=== PATIENT | male | born 1965 | race Caucasian/White ===

== ENCOUNTER 2019-01-18 14:32 | Emergency (ER) | payer MEDICAID ==
[~2019-01-18] VITALS: Ht 185.4 cm; Wt 99.9 kg
[2019-01-18 15:48] LABS: BASOPHILS % (AUTO) 1 % (0-1); EOSINOPHILS # (AUTO) 0.22 x10^3/uL (0-0.4); EOSINOPHILS % (AUTO) 2 % (1-7); LYMPHOCYTES % (AUTO) 31 % (22-44); MD NO; MEAN CORPUSCULAR HEMOGLOBIN 29.8 pg (27.5-34.5); MEAN CORPUSCULAR HGB CONC 33.4 g/dL (33.2-36.2); MEAN CORPUSCULAR VOLUME 89.1 fL (81-97); MONOCYTES # (AUTO) 1.03 x10^3/uL (0.2-0.8); MONOCYTES % (AUTO) 8 % (2-9); NEUTROPHILS # (AUTO) 7.74 x10^3/uL (1.8-6.8); NEUTROPHILS % (AUTO) 59 % (42-75); PLATELET COUNT 326 x10^3/uL (130-400); RED BLOOD COUNT 5.16 x10^6/uL (4.38-5.82); RED CELL DISTRIBUTION WIDTH 15.9 % (9.4-14.8)
[2019-01-18 15:53] LABS: ALANINE AMINOTRANSFERASE 25 U/L (12-78); ALBUMIN 4.3 g/dL (3.4-5.0); ANION GAP 9 mmol/L (5-15); CALCIUM 9.1 mg/dL (8.5-10.1); CHLORIDE 107 mmol/L (98-107)
[2019-01-18 15:56] LABS: ALKALINE PHOSPHATASE 116 U/L (45-117); BILIRUBIN,TOTAL 0.2 mg/dL (0.2-1.0); CREATININE 1.12 mg/dL (0.7-1.3); TOTAL PROTEIN 8.6 g/dL (6.4-8.2)
[2019-01-18] MEDS ORDERED: LIDOCAINE 2%,20 ML JEL.PF.APP MM ONE (16:12)
--- NOTE | 2019-01-18 16:16 | NUR ---
Pt reports hx of bladder cancer, self caths, has not been able to successfully cath himself since 0130am. Increasing abd pain, 05/19
--- NOTE | 2019-01-18 16:18 | NUR ---
RN x2 at bedside for cath insertion.
[2019-01-18 16:19] VITALS: BP 110/65
--- NOTE | 2019-01-18 16:29 | NUR ---
Acevedo placed and still draining, approx 1100cc output already, pt reports decreased pain
[2019-01-18 16:39] LABS: MICROSCOPIC AUTO
[2019-01-18 16:51] LABS: CULTURE INDICATED? YES
[2019-01-18] MEDS ORDERED: NITROFURANTOIN (MACROBID) 100 MG CAPSULE PO ONE (17:00)
[2019-01-18] MEDS ORDERED: NITROFURANTOIN (MACROBID) 100 MG CAPSULE ONE (17:26)
--- NOTE | 2019-01-18 18:01 | NUR ---
Pt given extra bag for night and leg bag placed on pt prior to dc, verbalized understanding of dc instructions and importance of returning to ed for any worsening/concerning s/s
== END 2019-01-18 18:03 | disposition home or self-care (01) ==
LOC: EDSEX 14:32 → ED 17:57
DX: N30.00 Acute cystitis without hematuria (principal); F17.200 Nicotine dependence, unspecified, uncomplicated; C67.9 Malignant neoplasm of bladder, unspecified
CPT/HCPCS: 36415; 51702; 80053; 81001; 85025; 87077; 87086; 87186; 99284

== ENCOUNTER 2019-01-20 06:57 | Emergency (ER) | payer MEDICAID ==
[~2019-01-20] VITALS: Ht 185.4 cm; Wt 98.9 kg
[2019-01-20 06:59] VITALS: BP 126/80
--- NOTE | 2019-01-20 07:08 | NUR ---
LEG CATH BAG WITH STRAPS GIVEN TO PT
--- NOTE | 2019-01-20 07:13 | NUR ---
Patient given discharge instructions and they have confirmed that they understand the instructions. Patient ambulatory with steady gait.
== END 2019-01-20 07:14 | disposition home or self-care (01) ==
LOC: ED 07:08
DX: Z46.6 Encounter for fitting and adjustment of urinary device (principal); Z85.51 Personal history of malignant neoplasm of bladder
CPT/HCPCS: 99284

== ENCOUNTER 2019-01-23 05:50 | Emergency (ER) | payer MEDICAID ==
[~2019-01-23] VITALS: Ht 185.4 cm; Wt 101.5 kg
--- NOTE | 2019-01-23 06:13 | NUR ---
FIRST CONTACT WITH PT. PT HAS HAMLIN PLACED LAST WEEK, NOTES DECREASED OUTPUT SINCE LAST NIGHT. PT DENIES ANY DRAINAGE/SWELLING/PAIN AROUND CATHETER SITE. PT C/O BILATERAL LOWER ABD PAIN D/T DECREASED OUTPUT. PT'S AOX4. RESPS EVEN AND UNLABORED. BP/SPO2 MONITORS IN PLACE. CALL LIGHT WITHIN REACH.
--- NOTE | 2019-01-23 06:42 | NUR ---
HAND IRRIGATE IS DONE. PT URINATING NOW.
--- NOTE | 2019-01-23 06:49 | NUR ---
REPORT GIVEN TO ZULMA SUMMERS.
--- NOTE | 2019-01-23 06:49 | NUR ---
REPORT FROM WIL SUMMERS, ASSUME CARE OF PT AT THS TIME.
[2019-01-23 06:58] VITALS: BP 121/78
--- NOTE | 2019-01-23 06:58 | NUR ---
PT DISCHARGED HOME WITH IRRIGATION SUPPLIES PER ERP.
== END 2019-01-23 07:00 | disposition home or self-care (01) ==
LOC: ED 06:44
DX: N40.1 Benign prostatic hyperplasia with lower urinary tract symptoms (principal); R33.8 Other retention of urine; C67.9 Malignant neoplasm of bladder, unspecified
CPT/HCPCS: 51700; 99284

== ENCOUNTER 2019-02-13 21:15 | Inpatient (IN) | payer MEDICAID ==
[~2019-02-13] VITALS: Ht 185.4 cm; Wt 101.0 kg
--- NOTE | 2019-02-13 21:45 | NUR ---
PT. TO ED WITH C/O RIGHT SIDE PAIN/RIGHT FLANK PAIN STARTING TODAY. PT. REPORTS PAIN COMES IN WAVES. PT. APPERS VERY UNCOMFORTABLE. PANCHITO LYON IN TO EVAL AND DISCUSS POC. IV PLACED. BLOOD DRAWN.
[2019-02-13] MEDS ORDERED: HYDROmorphone 2 MG/ML, 1ML ONE (21:51)
[2019-02-13] MEDS ORDERED: KETOROLAC 30 MG/1 ML ONE (21:51)
[2019-02-13] MEDS ORDERED: ONDANSETRON 2MG/ML, 2ML ONE (21:51)
[2019-02-13] MEDS: HYDROmorphone 2 MG/ML, 1ML IVPush PRN (21:54)
[2019-02-13 21:57] LABS: BASOPHILS # (AUTO) 0.05 x10^3/uL (0-0.1); BASOPHILS % (AUTO) 0 % (0-1); EOSINOPHILS # (AUTO) 0.37 x10^3/uL (0-0.4); EOSINOPHILS % (AUTO) 3 % (1-7); LYMPHOCYTES # (AUTO) 3.21 x10^3/uL (1-3.4); LYMPHOCYTES % (AUTO) 23 % (22-44); MD NO; MEAN CORPUSCULAR HEMOGLOBIN 30.3 pg (27.5-34.5); MEAN CORPUSCULAR HGB CONC 33.3 g/dL (33.2-36.2); MONOCYTES # (AUTO) 1.09 x10^3/uL (0.2-0.8); MONOCYTES % (AUTO) 8 % (2-9); NEUTROPHILS # (AUTO) 9.52 x10^3/uL (1.8-6.8); NEUTROPHILS % (AUTO) 67 % (42-75); PLATELET COUNT 276 x10^3/uL (130-400); RED BLOOD COUNT 5.03 x10^6/uL (4.38-5.82); RED CELL DISTRIBUTION WIDTH 15.1 % (9.4-14.8)
[2019-02-13] MEDS ORDERED: KETOROLAC 30 MG/1 ML IVPush ONE (22:00)
[2019-02-13] MEDS ORDERED: ONDANSETRON 2MG/ML, 2ML IVPush ONE (22:00)
[2019-02-13] MEDS ORDERED: SODIUM CHLORIDE FLUSH 10ML SYR IVF ONE (22:00)
[2019-02-13] MEDS ORDERED: METO25TA91 PO (22:03)
[2019-02-13] MEDS ORDERED: ASPI-496 PO (22:03)
[2019-02-13] MEDS ORDERED: LOSA25TA25 PO (22:03)
[2019-02-13] MEDS ORDERED: FLEC50TA25 PO (22:03)
[2019-02-13 22:05] LABS: ALANINE AMINOTRANSFERASE 29 U/L (12-78); ALBUMIN 3.9 g/dL (3.4-5.0); ANION GAP 6 mmol/L (5-15); CHLORIDE 106 mmol/L (98-107); CREATININE 1.11 mg/dL (0.7-1.3)
[2019-02-13 22:08] LABS: ALKALINE PHOSPHATASE 134 U/L (45-117); BILIRUBIN,TOTAL 0.3 mg/dL (0.2-1.0); TOTAL PROTEIN 8.1 g/dL (6.4-8.2)
--- NOTE | 2019-02-13 22:15 | NUR ---
PT. WAS ABLE TO AMBULATE TO BR TO PROVIDE STRAIGHT CATH(PT. STRAIGHT CATH'S SELF.) PT. DID USE CLEAN TECHNIQUE AND CLEANED PENIS PRIOR. URINE SENT TO LAB.
--- NOTE | 2019-02-13 22:41 | NUR ---
PT. REPORTS PAIN RELIEF AT THIS TIME DOWN TO 09/19. URINE PENDING. PT. DENEIS NEEDS.
[2019-02-13 22:54] LABS: CULTURE INDICATED? YES; MICROSCOPIC INDICATED
--- NOTE | 2019-02-13 23:27 | NUR ---
CHART UP FOR RECHECK AT THIS TIME.
--- NOTE | 2019-02-13 23:43 | NUR ---
PT. TO CT VIA [facility] AT THIS TIME.
[2019-02-14] MEDS ORDERED: CEFTRIAXONE PMX 1GM/50ML 50 ML IV ONE (00:30)
[2019-02-14] MEDS ORDERED: CEFTRIAXONE PMX 1GM/50ML 50 ML ONE (01:02)
--- NOTE | 2019-02-14 01:04 | NUR ---
PER PANCHITO LYON NO BLOOD CULTURES NEEDED PRIOR TO IV ABX. PT. AMBULATORY DOWN CONTE TO AT THIS TIME.
[2019-02-14] MEDS: HYDROmorphone 2 MG/ML, 1ML IVPush PRN (01:06)
--- NOTE | 2019-02-14 01:18 | NUR ---
REPORT TO MELINA SILVEIRA. FLOOR READY FOR PT. TRANSPORT.
[2019-02-14 01:34] VITALS: BP 107/67
[2019-02-14 07:09] VITALS: BP 116/72
[2019-02-14] MEDS: METOPROLOL SUCCINATE 25 MG TAB.ER.24H PO SCH (08:11)
[2019-02-14] MEDS: ASPIRIN 81 MG TABLET EC PO SCH (08:11)
[2019-02-14] MEDS: FLECAINIDE 50MG TABLET PO SCH ×2 (08:11→20:02)
[2019-02-14 10:05] LABS: BASOPHILS # (AUTO) 0.07 x10^3/uL (0-0.1); BASOPHILS % (AUTO) 1 % (0-1); EOSINOPHILS # (AUTO) 0.18 x10^3/uL (0-0.4); EOSINOPHILS % (AUTO) 2 % (1-7); LYMPHOCYTES # (AUTO) 2.31 x10^3/uL (1-3.4); LYMPHOCYTES % (AUTO) 28 % (22-44); MD NO; MEAN CORPUSCULAR HEMOGLOBIN 29.5 pg (27.5-34.5); MEAN CORPUSCULAR VOLUME 89.2 fL (81-97); MEAN PLATELET VOLUME 6.7 fL (7.4-10.4); MONOCYTES # (AUTO) 0.86 x10^3/uL (0.2-0.8); MONOCYTES % (AUTO) 10 % (2-9); NEUTROPHILS % (AUTO) 59 % (42-75); PLATELET COUNT 257 x10^3/uL (130-400); RED BLOOD COUNT 4.95 x10^6/uL (4.38-5.82); RED CELL DISTRIBUTION WIDTH 15.3 % (9.4-14.8)
[2019-02-14 10:07] LABS: ALBUMIN 3.9 g/dL (3.4-5.0); ANION GAP 6 mmol/L (5-15); CALCIUM 8.9 mg/dL (8.5-10.1); CHLORIDE 111 mmol/L (98-107)
[2019-02-14 10:10] LABS: ALANINE AMINOTRANSFERASE 24 U/L (12-78); ALKALINE PHOSPHATASE 116 U/L (45-117); BILIRUBIN,TOTAL 0.8 mg/dL (0.2-1.0); CREATININE 0.98 mg/dL (0.7-1.3); TOTAL PROTEIN 7.7 g/dL (6.4-8.2)
[2019-02-14] MEDS: NICOTINE 14MG/24 HR PATCH.TD24 TD SCH (10:28)
[2019-02-14] MEDS: D5%-0.45% NACL 1,000 ML IV SCH ×2 (10:28→20:03)
[2019-02-14] MEDS: HYDROmorphone 2 MG/ML, 1ML IV PRN ×3 (10:47→20:02)
[2019-02-14] MEDS: ONDANSETRON 2MG/ML, 2ML IVPush PRN ×2 (10:47→15:30)
[2019-02-14] MEDS ORDERED: FUROSEMIDE 20 MG/2 ML ONE (13:21)
[2019-02-14 14:25] VITALS: BP 137/87
[2019-02-14 19:05] VITALS: BP 143/88
[2019-02-15] MEDS: CEFTRIAXONE PMX 1GM/50ML 50 ML IV SCH (00:13)
[2019-02-15] MEDS: HYDROmorphone 2 MG/ML, 1ML IV PRN ×5 (00:13→22:23)
[2019-02-15 02:38] VITALS: BP 125/85
[2019-02-15 04:35] LABS: BASOPHILS # (AUTO) 0.05 x10^3/uL (0-0.1); BASOPHILS % (AUTO) 1 % (0-1); EOSINOPHILS # (AUTO) 0.24 x10^3/uL (0-0.4); EOSINOPHILS % (AUTO) 3 % (1-7); LYMPHOCYTES # (AUTO) 2.18 x10^3/uL (1-3.4); LYMPHOCYTES % (AUTO) 31 % (22-44); MD NO; MEAN CORPUSCULAR HEMOGLOBIN 29.6 pg (27.5-34.5); MEAN CORPUSCULAR HGB CONC 32.9 g/dL (33.2-36.2); MEAN CORPUSCULAR VOLUME 89.9 fL (81-97); MEAN PLATELET VOLUME 6.9 fL (7.4-10.4); MONOCYTES # (AUTO) 0.65 x10^3/uL (0.2-0.8); MONOCYTES % (AUTO) 9 % (2-9); NEUTROPHILS # (AUTO) 3.89 x10^3/uL (1.8-6.8); NEUTROPHILS % (AUTO) 56 % (42-75); PLATELET COUNT 268 x10^3/uL (130-400); RED BLOOD COUNT 4.99 x10^6/uL (4.38-5.82); RED CELL DISTRIBUTION WIDTH 14.9 % (9.4-14.8)
[2019-02-15 04:44] LABS: ALBUMIN 3.8 g/dL (3.4-5.0); ANION GAP 5 mmol/L (5-15); CHLORIDE 108 mmol/L (98-107)
[2019-02-15 04:49] LABS: ALANINE AMINOTRANSFERASE 23 U/L (12-78); ALKALINE PHOSPHATASE 110 U/L (45-117); BILIRUBIN,TOTAL 0.4 mg/dL (0.2-1.0); CREATININE 1.18 mg/dL (0.7-1.3); TOTAL PROTEIN 7.6 g/dL (6.4-8.2)
[2019-02-15] MEDS: D5%-0.45% NACL 1,000 ML IV SCH ×3 (06:40→22:23)
[2019-02-15 07:54] VITALS: BP 122/81
[2019-02-15] MEDS: METOPROLOL SUCCINATE 25 MG TAB.ER.24H PO SCH (08:23)
[2019-02-15] MEDS: NICOTINE 14MG/24 HR PATCH.TD24 TD SCH (08:23)
[2019-02-15] MEDS: FLECAINIDE 50MG TABLET PO SCH ×2 (08:23→21:00)
[2019-02-15] MEDS: ASPIRIN 81 MG TABLET EC PO SCH (08:23)
[2019-02-15 14:03] VITALS: BP 109/71
[2019-02-15 20:54] VITALS: BP 126/77
[2019-02-16] MEDS: CEFTRIAXONE PMX 1GM/50ML 50 ML IV SCH (00:23)
[2019-02-16 01:20] VITALS: BP 127/82
[2019-02-16] MEDS: HYDROmorphone 2 MG/ML, 1ML IV PRN ×7 (01:33→23:13)
[2019-02-16] MEDS: KETOROLAC 30 MG/1 ML IV PRN ×4 (03:57→23:13)
[2019-02-16] MEDS: LIDODERM 5% PATCH TD SCH (03:57)
[2019-02-16] MEDS ORDERED: KETOROLAC 30 MG/1 ML IM PRN (04:00)
[2019-02-16 05:22] LABS: BASOPHILS # (AUTO) 0.06 x10^3/uL (0-0.1); BASOPHILS % (AUTO) 1 % (0-1); EOSINOPHILS # (AUTO) 0.15 x10^3/uL (0-0.4); EOSINOPHILS % (AUTO) 1 % (1-7); LYMPHOCYTES # (AUTO) 2.08 x10^3/uL (1-3.4); LYMPHOCYTES % (AUTO) 17 % (22-44); MD NO; MEAN CORPUSCULAR HEMOGLOBIN 29.6 pg (27.5-34.5); MEAN CORPUSCULAR HGB CONC 32.7 g/dL (33.2-36.2); MEAN CORPUSCULAR VOLUME 90.4 fL (81-97); MONOCYTES # (AUTO) 0.79 x10^3/uL (0.2-0.8); MONOCYTES % (AUTO) 6 % (2-9); NEUTROPHILS # (AUTO) 9.21 x10^3/uL (1.8-6.8); NEUTROPHILS % (AUTO) 75 % (42-75); PLATELET COUNT 276 x10^3/uL (130-400); RED BLOOD COUNT 4.73 x10^6/uL (4.38-5.82)
[2019-02-16 05:31] LABS: ALBUMIN 3.7 g/dL (3.4-5.0); ANION GAP 8 mmol/L (5-15); CALCIUM 8.6 mg/dL (8.5-10.1); CHLORIDE 112 mmol/L (98-107)
[2019-02-16 05:35] LABS: ALANINE AMINOTRANSFERASE 28 U/L (12-78); ALKALINE PHOSPHATASE 107 U/L (45-117); BILIRUBIN,TOTAL 0.4 mg/dL (0.2-1.0); CREATININE 0.99 mg/dL (0.7-1.3); TOTAL PROTEIN 7.3 g/dL (6.4-8.2)
[2019-02-16] MEDS ORDERED: LACTATED RINGERS 1,000 ML IV SCH (07:30)
[2019-02-16 08:00] VITALS: BP 124/76
[2019-02-16] MEDS: FLECAINIDE 50MG TABLET PO SCH ×2 (08:05→22:27)
[2019-02-16] MEDS: NICOTINE 14MG/24 HR PATCH.TD24 TD SCH (08:05)
[2019-02-16] MEDS: ASPIRIN 81 MG TABLET EC PO SCH (08:05)
[2019-02-16] MEDS: METOPROLOL SUCCINATE 25 MG TAB.ER.24H PO SCH (08:05)
[2019-02-16 14:00] VITALS: BP 130/81
[2019-02-16 19:23] VITALS: BP 144/83
[2019-02-17] MEDS: CEFTRIAXONE PMX 1GM/50ML 50 ML IV SCH (00:36)
[2019-02-17 03:15] VITALS: BP 116/68
[2019-02-17] MEDS: LIDODERM 5% PATCH TD SCH (06:00)
[2019-02-17] MEDS: ASPIRIN 81 MG TABLET EC PO SCH (08:08)
[2019-02-17] MEDS: HYDROmorphone 2 MG/ML, 1ML IV PRN (08:09)
[2019-02-17] MEDS: METOPROLOL SUCCINATE 25 MG TAB.ER.24H PO SCH (08:09)
[2019-02-17] MEDS: FLECAINIDE 50MG TABLET PO SCH (08:09)
[2019-02-17] MEDS: NICOTINE 14MG/24 HR PATCH.TD24 TD SCH (08:09)
[2019-02-17] MEDS ORDERED: CEFTRIAXONE PMX 1GM/50ML 50 ML IV SCH (09:00)
[2019-02-17 09:55] VITALS: BP 136/94
[2019-02-17 11:55] LABS: BASOPHILS # (AUTO) 0.04 x10^3/uL (0-0.1); BASOPHILS % (AUTO) 1 % (0-1); EOSINOPHILS # (AUTO) 0.15 x10^3/uL (0-0.4); EOSINOPHILS % (AUTO) 2 % (1-7); LYMPHOCYTES # (AUTO) 2.41 x10^3/uL (1-3.4); LYMPHOCYTES % (AUTO) 32 % (22-44); MD NO; MEAN PLATELET VOLUME 6.7 fL (7.4-10.4); MONOCYTES % (AUTO) 8 % (2-9); NEUTROPHILS # (AUTO) 4.45 x10^3/uL (1.8-6.8); NEUTROPHILS % (AUTO) 58 % (42-75); PLATELET COUNT 319 x10^3/uL (130-400); RED CELL DISTRIBUTION WIDTH 14.7 % (9.4-14.8)
[2019-02-17] MEDS ORDERED: CEFD300C37 PO (12:04)
[2019-02-17 12:06] LABS: ALANINE AMINOTRANSFERASE 34 U/L (12-78); ALBUMIN 3.8 g/dL (3.4-5.0); ANION GAP 5 mmol/L (5-15); CALCIUM 8.8 mg/dL (8.5-10.1); CHLORIDE 111 mmol/L (98-107)
[2019-02-17 12:09] LABS: ALKALINE PHOSPHATASE 113 U/L (45-117); BILIRUBIN,TOTAL 0.2 mg/dL (0.2-1.0); CREATININE 1.01 mg/dL (0.7-1.3); TOTAL PROTEIN 7.7 g/dL (6.4-8.2)
== END 2019-02-17 13:15 | disposition home or self-care (01) | DRG 699 ==
LOC: ED 23:36 → EDIP 02-14 00:37 → 3NW 02-14 01:28
PROVIDERS: ADMIT Internal Medicine; ATTEND Internal Medicine
PROC: 0T9B70Z Drainage of Bladder with Drainage Device, Via Natural or Artificial Opening (ICD-10-PCS; principal; 2019-02-13)
DX: N32.0 Bladder-neck obstruction (principal); N13.6 Pyonephrosis; E87.1 Hypo-osmolality and hyponatremia; E86.0 Dehydration; F12.90 Cannabis use, unspecified, uncomplicated; F17.210 Nicotine dependence, cigarettes, uncomplicated; I10 Essential (primary) hypertension; I48.91 Unspecified atrial fibrillation; K43.9 Ventral hernia without obstruction or gangrene; Z79.82 Long term (current) use of aspirin; Z82.49 Family history of ischemic heart disease and other diseases of the circulatory system; Z85.51 Personal history of malignant neoplasm of bladder; Z87.19 Personal history of other diseases of the digestive system; Z90.49 Acquired absence of other specified parts of digestive tract; Z87.440 Personal history of urinary (tract) infections
CPT/HCPCS: 36415; 74176; 78708; 80053; 81001; 83735; 84100; 85025; 87040; 87077; 87086; 87186; 96365; 96375; 96376; G0378; J0696; J1170; J1885; J2405; A9562; C9898; J1940; J7120

== ENCOUNTER 2019-03-10 15:46 | Emergency (ER) | payer MEDICAID ==
[~2019-03-10] VITALS: Ht 185.4 cm; Wt 102.9 kg
[~2019-03-10 15:46] MED LIST: ASPI-496 PO; CEFD300C37 PO; FLEC50TA25 PO; LOSA25TA25 PO; METO25TA91 PO
--- NOTE | 2019-03-10 17:07 | NUR ---
DENTAL DETAIL REPRESENTATIVE: PT TO ED ROOM 14 FROM LOBBY IN [facility] AT THIS TIME.
[2019-03-10 17:22] LABS: ALBUMIN 4.2 g/dL (3.4-5.0); ANION GAP 8 mmol/L (5-15); CALCIUM 8.8 mg/dL (8.5-10.1); CHLORIDE 114 mmol/L (98-107); CREATININE 1.06 mg/dL (0.7-1.3)
--- NOTE | 2019-03-10 17:51 | NUR ---
PT HAS C/O BILAT FLANK PAIN. STATES HE WAS SEEN HERE BEFORE FOR PAIN TO ONLY ONE SIDE AND HAD KIDNEY STONE. HX BLADDER CANCER AND MULTIPLE UTI'S. PT STATES HE IS IN PAIN 29/05. STATES "THE ONLY THING THAT WORKS FOR MY PAIN IS IV DILAUDID". NO ORDERS FOR PAIN MEDS NOTED. ERP DR. AYALA NOTIFIED OF PT PAIN.
[2019-03-10 17:53] LABS: BASOPHILS # (AUTO) 0.08 x10^3/uL (0-0.1); BASOPHILS % (AUTO) 1 % (0-1); EOSINOPHILS # (AUTO) 0.39 x10^3/uL (0-0.4); EOSINOPHILS % (AUTO) 4 % (1-7); LYMPHOCYTES # (AUTO) 3.94 x10^3/uL (1-3.4); LYMPHOCYTES % (AUTO) 39 % (22-44); MD NO; MEAN CORPUSCULAR HEMOGLOBIN 30.6 pg (27.5-34.5); MEAN CORPUSCULAR HGB CONC 33.2 g/dL (33.2-36.2); MEAN CORPUSCULAR VOLUME 92.2 fL (81-97); MEAN PLATELET VOLUME 7.4 fL (7.4-10.4); MONOCYTES # (AUTO) 0.67 x10^3/uL (0.2-0.8); MONOCYTES % (AUTO) 7 % (2-9); NEUTROPHILS # (AUTO) 5.13 x10^3/uL (1.8-6.8); NEUTROPHILS % (AUTO) 50 % (42-75); PLATELET COUNT 268 x10^3/uL (130-400); RED BLOOD COUNT 5.06 x10^6/uL (4.38-5.82); RED CELL DISTRIBUTION WIDTH 14.7 % (9.4-14.8)
[2019-03-10] MEDS ORDERED: HYDROmorphone 2MG TABLET ONE (17:55)
[2019-03-10] MEDS ORDERED: HYDROmorphone 2MG TABLET PO ONE (18:00)
[2019-03-10 18:07] LABS: MICROSCOPIC AUTO
[2019-03-10 18:10] LABS: CULTURE INDICATED? YES
[2019-03-10 18:13] VITALS: BP 142/89
--- NOTE | 2019-03-10 18:14 | NUR ---
PT RESTING ON GUERLINE. MARIEL. VSS. AWARE OF POC FOR US.
--- NOTE | 2019-03-10 18:50 | NUR ---
REPORT GIVEN TO WILIAN SCHULTZ RN'S.
--- NOTE | 2019-03-10 19:57 | NUR ---
LEG BAG PLACED ON THE PT.
== END 2019-03-10 20:00 | disposition home or self-care (01) ==
LOC: ED 19:23
DX: N30.00 Acute cystitis without hematuria (principal); N32.0 Bladder-neck obstruction; I10 Essential (primary) hypertension
CPT/HCPCS: 36415; 51702; 76770; 80048; 81001; 82040; 83605; 85025; 87077; 87086; 87186; 99284

== ENCOUNTER 2019-03-10 21:38 | Emergency (ER) | payer MEDICAID ==
[~2019-03-10] VITALS: Ht 185.4 cm; Wt 102.6 kg
[2019-03-10 21:41] VITALS: BP 129/88
== END 2019-03-10 23:12 | disposition home or self-care (01) ==
LOC: ED 23:08
DX: T83.091A Other mechanical complication of indwelling urethral catheter, initial encounter (principal); R33.9 Retention of urine, unspecified; I10 Essential (primary) hypertension; I48.91 Unspecified atrial fibrillation; F17.200 Nicotine dependence, unspecified, uncomplicated; Z90.49 Acquired absence of other specified parts of digestive tract
CPT/HCPCS: 99284

== ENCOUNTER 2019-03-16 12:25 | Emergency (ER) | payer MEDICAID ==
[~2019-03-16] VITALS: Ht 185.4 cm; Wt 101.8 kg
[2019-03-16 12:36] VITALS: BP 141/87
== END 2019-03-16 15:27 | disposition home or self-care (01) ==
LOC: ED 14:52
DX: R33.9 Retention of urine, unspecified (principal); R10.84 Generalized abdominal pain; I10 Essential (primary) hypertension; I48.91 Unspecified atrial fibrillation; F17.200 Nicotine dependence, unspecified, uncomplicated; Z85.51 Personal history of malignant neoplasm of bladder; Z90.89 Acquired absence of other organs
CPT/HCPCS: 81001; 87086; 99283

== ENCOUNTER 2019-03-28 05:35 | Emergency (ER) | payer MEDICAID ==
[~2019-03-28] VITALS: Ht 185.4 cm; Wt 102.6 kg
[2019-03-28 08:09] VITALS: BP 126/79
== END 2019-03-28 09:33 | disposition home or self-care (01) ==
LOC: ED 06:05
DX: N10 Acute pyelonephritis (principal); N39.0 Urinary tract infection, site not specified; K64.4 Residual hemorrhoidal skin tags; F17.210 Nicotine dependence, cigarettes, uncomplicated; I10 Essential (primary) hypertension; I48.91 Unspecified atrial fibrillation; Z85.51 Personal history of malignant neoplasm of bladder
CPT/HCPCS: 36415; 74177; 80048; 81001; 82040; 85025; 87077; 87086; 96365; 96375; 99284; J0696; J1170; J2405; Q9967; 87186

== ENCOUNTER 2019-04-15 12:49 | Inpatient (IN) | payer MEDICAID ==
[~2019-04-15] VITALS: Ht 185.4 cm; Wt 104.1 kg
--- NOTE | 2019-04-15 13:45 | NUR ---
PT HERE TODAY FOR RIGHT FLANK PAIN. STATES HE FEELS HE IS GETTING A BLADDER INFECTION. PT HAS LESLIE BLADDER FROM [facility]. STRAIGHT CATHS HIMSELF. PT ABLE TO STRAIGHT CATH SELF FOR UA SAMPE. SAMPLE COLLECTED. LAB JUST FINISHED AT BEDSIDE. PT RESTING ON GURNEY. NADN. DENIES NEEDS. VSS.
[2019-04-15 13:57] LABS: MICROSCOPIC AUTO
[2019-04-15 13:58] LABS: BASOPHILS # (AUTO) 0.04 x10^3/uL (0-0.1); BASOPHILS % (AUTO) 0 % (0-1); EOSINOPHILS # (AUTO) 0.21 x10^3/uL (0-0.4); EOSINOPHILS % (AUTO) 2 % (1-7); LYMPHOCYTES # (AUTO) 3.32 x10^3/uL (1-3.4); LYMPHOCYTES % (AUTO) 28 % (22-44); MD NO; MEAN CORPUSCULAR HEMOGLOBIN 30.8 pg (27.5-34.5); MEAN CORPUSCULAR HGB CONC 33.9 g/dL (33.2-36.2); MEAN CORPUSCULAR VOLUME 90.9 fL (81-97); MONOCYTES # (AUTO) 0.85 x10^3/uL (0.2-0.8); MONOCYTES % (AUTO) 7 % (2-9); NEUTROPHILS # (AUTO) 7.42 x10^3/uL (1.8-6.8); NEUTROPHILS % (AUTO) 63 % (42-75); PLATELET COUNT 266 x10^3/uL (130-400); RED CELL DISTRIBUTION WIDTH 13.4 % (9.4-14.8)
[2019-04-15] MEDS ORDERED: HYDROcodone/APAP 5/325 TABLET PO ONE (14:00)
[2019-04-15] MEDS ORDERED: ONDANSETRON 4 MG TABLET PO ONE (14:00)
[2019-04-15 14:02] LABS: CULTURE INDICATED? YES
[2019-04-15 14:07] LABS: ALANINE AMINOTRANSFERASE 51 U/L (12-78); ALBUMIN 4.3 g/dL (3.4-5.0); ANION GAP 9 mmol/L (5-15); CALCIUM 8.7 mg/dL (8.5-10.1); CHLORIDE 111 mmol/L (98-107); CREATININE 1.05 mg/dL (0.7-1.3)
[2019-04-15] MEDS ORDERED: ONDANSETRON ODT 4 MG ONE (14:08)
[2019-04-15] MEDS ORDERED: HYDROcodone/APAP 5/325 TABLET ONE (14:08)
[2019-04-15 14:09] LABS: ALKALINE PHOSPHATASE 119 U/L (45-117); BILIRUBIN,TOTAL 0.4 mg/dL (0.2-1.0); TOTAL PROTEIN 7.8 g/dL (6.4-8.2)
--- NOTE | 2019-04-15 14:36 | NUR ---
PT MEDICATED PER EMAR. SITTING ON GURNEY STATING PAIN IS BAD. NADN. VSS. DENIES ANY OTHER NEED.
--- NOTE | 2019-04-15 15:04 | NUR ---
PIV STARTED. PT RESTING ON GURNEY. STATES PAIN IS RELIEVED. NADN. VSS. DENIES NEEDS.
--- NOTE | 2019-04-15 15:13 | NUR ---
LAB AT BEDSIDE TO DRAW BC.
[2019-04-15] MEDS ORDERED: CEFTRIAXONE PMX 1GM/50ML 50 ML IV ONE (15:30)
--- NOTE | 2019-04-15 15:45 | NUR ---
Break RN: Report called to MELINA Marc to initiate Abx prior to transfer to floor
[2019-04-15] MEDS ORDERED: CEFTRIAXONE PMX 1GM/50ML 50 ML ONE (15:48)
--- NOTE | 2019-04-15 15:50 | NUR ---
PT MEDICATED PER EMAR, ABX STARTED.
[2019-04-15] MEDS ORDERED: OXYcodone IR 5MG TABLET PO PRN (16:00)
[2019-04-15] MEDS ORDERED: hydrALAzine 20 MG/ML, 1ML IVPush PRN (16:00)
[2019-04-15] MEDS ORDERED: ONDANSETRON ODT 4 MG PO PRN (16:00)
[2019-04-15] MEDS ORDERED: POLYETHYLENE GLYCOL 17 GM PACKET PO PRN (16:00)
[2019-04-15] MEDS ORDERED: PROMETHAZINE 25 MG/ML, 1ML IM PRN (16:00)
[2019-04-15] MEDS ORDERED: BISACODYL 10 MG SUPP PR PRN (16:00)
[2019-04-15] MEDS ORDERED: DOCUSATE 100 MG CAPSULE PO PRN (16:00)
[2019-04-15] MEDS ORDERED: ACETAMINOPHEN 325 MG TABLET PO PRN (16:00)
[2019-04-15 16:51] LABS: FREE T4 (FREE THYROXINE) 0.87 ng/dL (0.76-1.46)
[2019-04-15] MEDS: HYDROmorphone 2 MG/ML, 1ML IVPush PRN ×2 (16:58→20:07)
[2019-04-15] MEDS: HEPARIN 5,000 UNITS/ML, 1ML SQ SCH (16:59)
[2019-04-15] MEDS: NICOTINE 7 MG/24 HR PATCH.TD24 TD SCH (16:59)
[2019-04-15] MEDS: SODIUM CHLORIDE 0.9% 1,000 ML IV SCH ×2 (16:59→22:53)
[2019-04-15 17:39] LABS: HEMOGLOBIN A1C 5.7 % (4.2-6.3)
[2019-04-15] MEDS: PIPERACILLIN/TAZO/PMX 3.375GM 50 ML IV SCH ×3 (18:00→22:15)
[2019-04-15] MEDS: ONDANSETRON 2MG/ML, 2ML IVPush PRN (20:06)
[2019-04-15 21:55] VITALS: BP 125/81
[2019-04-16] MEDS: HEPARIN 5,000 UNITS/ML, 1ML SQ SCH ×4 (00:03→23:19)
[2019-04-16 01:01] VITALS: BP 141/94
[2019-04-16] MEDS: HYDROmorphone 2 MG/ML, 1ML IVPush PRN ×4 (01:13→20:29)
[2019-04-16] MEDS: SODIUM CHLORIDE 0.9% 1,000 ML IV SCH ×2 (02:10→12:27)
[2019-04-16] MEDS: PIPERACILLIN/TAZO/PMX 3.375GM 50 ML IV SCH ×4 (04:08→21:47)
[2019-04-16 04:58] LABS: BASOPHILS # (AUTO) 0.04 x10^3/uL (0-0.1); BASOPHILS % (AUTO) 0 % (0-1); EOSINOPHILS # (AUTO) 0.18 x10^3/uL (0-0.4); EOSINOPHILS % (AUTO) 2 % (1-7); LYMPHOCYTES # (AUTO) 1.94 x10^3/uL (1-3.4); LYMPHOCYTES % (AUTO) 17 % (22-44); MD NO; MEAN CORPUSCULAR HEMOGLOBIN 30.5 pg (27.5-34.5); MEAN CORPUSCULAR HGB CONC 33.5 g/dL (33.2-36.2); MEAN CORPUSCULAR VOLUME 91.2 fL (81-97); MEAN PLATELET VOLUME 7.2 fL (7.4-10.4); MONOCYTES # (AUTO) 1.09 x10^3/uL (0.2-0.8); MONOCYTES % (AUTO) 9 % (2-9); NEUTROPHILS % (AUTO) 72 % (42-75); PLATELET COUNT 227 x10^3/uL (130-400); RED CELL DISTRIBUTION WIDTH 13.3 % (9.4-14.8)
[2019-04-16 05:12] LABS: ALANINE AMINOTRANSFERASE 34 U/L (12-78); ALBUMIN 3.5 g/dL (3.4-5.0); ANION GAP 6 mmol/L (5-15); CALCIUM 8.4 mg/dL (8.5-10.1); CHLORIDE 111 mmol/L (98-107)
[2019-04-16 05:15] LABS: ALKALINE PHOSPHATASE 107 U/L (45-117); BILIRUBIN,TOTAL 1.1 mg/dL (0.2-1.0); CHOL/HDL RATIO 3.6; CHOLESTEROL, TOTAL 179 mg/dL (140-239); CREATININE 1.06 mg/dL (0.7-1.3); HDL CHOL % 28 % (26-37); HDL CHOLESTEROL (DIRECT) 50 mg/dL (40-60); LDL CHOLESTEROL,CALCULATED 91 mg/dL (54-169); LDL/HDL RATIO 1.8 (0.5-3.0); TOTAL PROTEIN 6.9 g/dL (6.4-8.2); TRIGLYCERIDES 191 mg/dL (50-200); VLDL CHOLESTEROL 38 mg/dL (0-25)
[2019-04-16 07:15] VITALS: BP 123/71
[2019-04-16] MEDS: ASPIRIN 81 MG TABLET EC PO SCH (10:12)
[2019-04-16] MEDS: LOSARTAN 25MG TABLET PO SCH (10:12)
[2019-04-16] MEDS: FLECAINIDE 50MG TABLET PO SCH ×2 (10:12→21:03)
[2019-04-16] MEDS: METOPROLOL SUCCINATE 25 MG TAB.ER.24H PO SCH (10:12)
[2019-04-16] MEDS: ONDANSETRON 2MG/ML, 2ML IVPush PRN ×2 (11:03→15:13)
[2019-04-16 14:00] VITALS: BP 124/76
[2019-04-16] MEDS: NICOTINE 7 MG/24 HR PATCH.TD24 TD SCH (16:03)
[2019-04-16 18:43] VITALS: BP 120/77
[2019-04-17] MEDS: HYDROmorphone 2 MG/ML, 1ML IVPush PRN ×5 (03:03→21:23)
[2019-04-17 03:35] VITALS: BP 127/72
[2019-04-17] MEDS: PIPERACILLIN/TAZO/PMX 3.375GM 50 ML IV SCH ×4 (04:27→21:45)
[2019-04-17] MEDS: METOPROLOL SUCCINATE 25 MG TAB.ER.24H PO SCH (08:22)
[2019-04-17] MEDS: FLECAINIDE 50MG TABLET PO SCH ×2 (08:22→20:46)
[2019-04-17] MEDS: LOSARTAN 25MG TABLET PO SCH (08:22)
[2019-04-17] MEDS: ASPIRIN 81 MG TABLET EC PO SCH (08:22)
[2019-04-17] MEDS: HEPARIN 5,000 UNITS/ML, 1ML SQ SCH ×2 (08:22→16:12)
[2019-04-17 08:26] VITALS: BP 120/79
[2019-04-17 14:01] VITALS: BP 113/72
[2019-04-17] MEDS: NICOTINE 7 MG/24 HR PATCH.TD24 TD SCH (16:12)
[2019-04-17 20:05] VITALS: BP 115/72
[2019-04-18] MEDS: HEPARIN 5,000 UNITS/ML, 1ML SQ SCH ×3 (00:03→16:00)
[2019-04-18] MEDS: HYDROmorphone 2 MG/ML, 1ML IVPush PRN ×4 (01:00→14:17)
[2019-04-18 01:05] VITALS: BP 126/84
[2019-04-18] MEDS: PIPERACILLIN/TAZO/PMX 3.375GM 50 ML IV SCH ×3 (04:05→16:00)
[2019-04-18 06:43] VITALS: BP 138/81
[2019-04-18] MEDS: LOSARTAN 25MG TABLET PO SCH (10:22)
[2019-04-18] MEDS: ASPIRIN 81 MG TABLET EC PO SCH (10:22)
[2019-04-18] MEDS: METOPROLOL SUCCINATE 25 MG TAB.ER.24H PO SCH (10:22)
[2019-04-18] MEDS: FLECAINIDE 50MG TABLET PO SCH (10:22)
[2019-04-18 12:43] VITALS: BP 128/76
[2019-04-18] MEDS ORDERED: CEFD300C37 PO (15:45)
[2019-04-18] MEDS ORDERED: TRAM-47 PO (15:45)
[2019-04-18] MEDS ORDERED: SENN-177 PO (15:45)
[2019-04-18] MEDS: NICOTINE 7 MG/24 HR PATCH.TD24 TD SCH (16:00)
== END 2019-04-18 17:08 | disposition home or self-care (01) | DRG 690 ==
LOC: ED 13:27 → 3N 15:08 → DCLOUNGE 04-18 16:58
PROVIDERS: ADMIT Family Medicine; ATTEND Family Medicine
PROC: 0T9B70Z Drainage of Bladder with Drainage Device, Via Natural or Artificial Opening (ICD-10-PCS; principal; 2019-04-15)
DX: N13.6 Pyonephrosis (principal); B96.1 Klebsiella pneumoniae [K. pneumoniae] as the cause of diseases classified elsewhere; B96.20 Unspecified Escherichia coli [E. coli] as the cause of diseases classified elsewhere; F17.210 Nicotine dependence, cigarettes, uncomplicated; I10 Essential (primary) hypertension; I48.2 Chronic atrial fibrillation; K43.9 Ventral hernia without obstruction or gangrene; Z63.9 Problem related to primary support group, unspecified; Z82.49 Family history of ischemic heart disease and other diseases of the circulatory system; Z85.51 Personal history of malignant neoplasm of bladder; Z87.440 Personal history of urinary (tract) infections; Z90.6 Acquired absence of other parts of urinary tract; Z90.49 Acquired absence of other specified parts of digestive tract; Z88.5 Allergy status to narcotic agent; Z88.8 Allergy status to other drugs, medicaments and biological substances; Z79.51 Long term (current) use of inhaled steroids
CPT/HCPCS: 36415; 76770; 80053; 80061; 81001; 83036; 83735; 84439; 84443; 85025; 87040; 87077; 87086; 87186; 99285; G0378; J0696; J1170; J1644; J2405; J2543; Q0162; J7030